=== PATIENT | female | born 1990 | race Asian ===

== ENCOUNTER 2016-09-10 11:47 | Outpatient (CLI) | payer BC ==
[~2016-09-10] VITALS: Ht 154.9 cm; Wt 93.0 kg
[2016-09-10 22:34] LABS: POTASSIUM 3.4 mmol/L (3.6-5.2); SODIUM 138 mmol/L (136-145)
== END 2016-09-10 20:18 | disposition home or self-care (01) ==
LOC: INF 11:47
PROVIDERS: Family Medicine
DX: E86.0 Dehydration (principal)
CPT/HCPCS: 36415; 36600; 80053; 82805; 96360; 96361

== ENCOUNTER → 2017-06-23 12:14 | Outpatient (CLI) | payer BC, OTHER | END | disposition home or self-care (01) | LOC: INF 12:14 | DX: E86.0 Dehydration (principal) | CPT/HCPCS: 96360; 96361 ==

== ENCOUNTER 2017-07-29 10:27 | Outpatient (CLI) | payer BC, OTHER | END 2017-07-29 22:21 | disposition home or self-care (01) | LOC: LAB 10:27 | DX: L02.412 Cutaneous abscess of left axilla (principal) | CPT/HCPCS: 87070; 87077; 87186; 87205 ==

== ENCOUNTER 2020-03-04 08:37 | Outpatient (CLI) | payer BC | END 2020-03-04 23:38 | disposition home or self-care (01) | LOC: US 08:37 | DX: R22.32 Localized swelling, mass and lump, left upper limb (principal) ==

== ENCOUNTER 2020-04-11 10:26 | Outpatient (CLI) | payer BC | END 2020-04-11 20:59 | disposition home or self-care (01) | LOC: CT 10:26 | PROVIDERS: ATTEND Family Medicine | DX: G43.009 Migraine without aura, not intractable, without status migrainosus (principal) ==

== ENCOUNTER 2020-08-23 09:15 | Outpatient (CLI) | payer BC | END 2020-08-23 21:47 | disposition home or self-care (01) | LOC: LABW 09:15 → US 10:00 → LABW 21:47 | PROVIDERS: ATTEND Nurse Practitioner Family | DX: R10.12 Left upper quadrant pain (principal) | CPT/HCPCS: 36415; 82150; 83690 ==

== ENCOUNTER 2020-08-26 09:32 | Outpatient (CLI) | payer BC | END 2020-08-26 21:35 | disposition home or self-care (01) | LOC: RAD 09:32 | PROVIDERS: ATTEND Nurse Practitioner Family | DX: K59.00 Constipation, unspecified (principal) ==

== ENCOUNTER 2020-09-11 17:51 | Outpatient (CLI) | payer BC | END 2020-09-11 21:36 | disposition home or self-care (01) | LOC: RAD 17:51 | PROVIDERS: ATTEND Nurse Practitioner Family | DX: K31.84 Gastroparesis (principal) ==